=== PATIENT | male | born 1990 ===

== ENCOUNTER 2025-05-01 14:02 | Emergency (ER) | payer OTHER ==
[~2025-05-01] VITALS: Ht 175.3 cm; Wt 67.5 kg
[2025-05-01 15:02] LABS: PLATELET COUNT (AUTO) 192 K/uL (150-450); RED BLOOD CELL COUNT(AUTO) 5.52 MIL/uL (4.50-5.90); RED CELL DISTRIBUTION WIDTH 13.3 % (11.5-14.5); WHITE BLOOD COUNT (AUTO) 8.0 K/uL (4.5-11.0)
[2025-05-01 15:12] LABS: CALCIUM, TOTAL 7.5 mg/dL (8.8-10.5); CREATININE 0.54 mg/dL (0.60-1.30); GLOMERULAR FILTR. RATE CALC > 60 mL/min (>60); GLUCOSE,RANDOM 102 mg/dL (70-110); SODIUM SERUM 133 mmol/L (136-145); UREA NITROGEN, BLOOD 8 mg/dL (7-18)
[2025-05-01 15:13] VITALS: TEMP 97.6
[2025-05-01 15:38] LABS: ASPARTATE AMINOTRANSFERASE 29.0 U/L (15-37); TOTAL PROTEIN, SERUM 6.7 g/dL (6.4-8.2)
[2025-05-01] MEDS: FAMOTIDINE 20 MG/2 ML VIAL IVP ONE (15:46)
[2025-05-01] MEDS: METOCLOPRAMIDE HCL 5 MG/ML 2 ML VIAL IVP ONE (15:46)
[2025-05-01] MEDS: SODIUM CHLORIDE 0.9% 1,000 ML IV ONE (15:47)
[2025-05-01 19:39] VITALS: BP 145/92; PULSE 83; RESP 16; O2SAT 95
== END 2025-05-01 20:24 | disposition home or self-care (01) ==
LOC: EMS 14:04
DX: R11.2 Nausea with vomiting, unspecified (principal); F10.129 Alcohol abuse with intoxication, unspecified; Y90.8 Blood alcohol level of 240 mg/100 ml or more
CPT/HCPCS: 99284; 96374; 96375; 96361; 80048; 80076; 83690; 83735; 85025; 36415; G0480; J1200; J3490; J2765; J7030